=== PATIENT | male | born 1955 | race Caucasian/White ===

== ENCOUNTER 2021-03-22 11:31 | Inpatient (IN) | payer MEDICAID ==
[~2021-03-22] VITALS: Ht 185.4 cm; Wt 140.0 kg
[~2021-03-22 11:31] MED LIST: LITH450T PO
--- NOTE | 2021-03-22 11:42 | NUR ---
MATTHEW JACKSON (SISTER) [phone] PER THE PT, HIS SISTER NAMED ABOVE, CAN BE INFORMED OF HIS MEDICAL CARE AND CAN MAKE DECISIONS IF HE IS UNABLE TO DO SO.
--- NOTE | 2021-03-22 11:45 | NUR ---
PT BIB EMS FROM FOR LOW SPO2 AND SOB. PT HAD PENUMONIA IN LATE 2019, NEGATIVE FOR COVID AND HAS BEEN HAVING LUNG ISSUES ON AND OFF SINCE. PT WENT TO TODAY FOR SOB. PER EMS TOLD THEM THAT PT O2 SPO2 ON ROOM AIR WAS 82%. EMS PLACED PT ON 6 LPM AND PT WENT UP TO 96%. PIV INTIATED BY EMS AND 4 MG ZOFRAN GIVEN. PT HOOKED TO [place]. VS ASSESSED. RAILS UP AND CALL LIGHT WITHIN REACH. SISTER BEDSIDE WITH PT.
[2021-03-22] MEDS ORDERED: SODIUM CHLORIDE 0.9% 1,000ML IVBOLUS ONE ×2 (12:30→15:00)
[2021-03-22] MEDS ORDERED: SODIUM CHLORIDE FLUSH 10ML SYR IVF ONE (12:30)
[2021-03-22] MEDS ORDERED: ONDANSETRON 2MG/ML, 2ML IVPush ONE (12:30)
[2021-03-22] MEDS ORDERED: ONDANSETRON 2MG/ML, 2ML ONE (12:43)
[2021-03-22] MEDS ORDERED: DEXAMETHASONE 4 MG/ML, 1ML ONE (12:56)
[2021-03-22] MEDS ORDERED: CEFTRIAXONE 1,000 MG in DEXTROSE 5% 50 ML IVPB ONE (13:00)
[2021-03-22] MEDS ORDERED: DEXAMETHASONE 4 MG/ML, 1ML IVPush ONE (13:00)
[2021-03-22 13:25] LABS: MEAN CORPUSCULAR HEMOGLOBIN 31.9 pg (27.5-34.5); MEAN CORPUSCULAR HGB CONC 34.2 g/dL (33.2-36.2); MEAN PLATELET VOLUME 9.4 fL (7.4-10.4); PLATELET COUNT 94 x10^3/uL (130-400); RED BLOOD COUNT 4.88 x10^6/uL (4.38-5.82); RED CELL DISTRIBUTION WIDTH 14.5 % (9.4-14.8)
[2021-03-22 13:37] LABS: ALANINE AMINOTRANSFERASE 63 U/L (12-78); ALBUMIN 2.7 g/dL (3.4-5.0); ANION GAP 6 mmol/L (5-15); CALCIUM 7.9 mg/dL (8.5-10.1); CHLORIDE 95 mmol/L (98-107)
[2021-03-22 13:41] LABS: ALKALINE PHOSPHATASE 52 U/L (45-117); BILIRUBIN,TOTAL 0.5 mg/dL (0.2-1.0); TOTAL PROTEIN 7.1 g/dL (6.4-8.2); TROPONIN I < 0.015 ng/mL (0.000-0.045)
[2021-03-22 14:05] LABS: <PLATELET ESTIMATE> DECREASED; <PLT MORPHOLOGY> NORMAL PLT MORPH; <RBC MORPHOLOGY> NORMAL; BAND#(MANUAL) 0.19 x10^3/uL; BANDS%(MANUAL) 5 % (0-7); LYMPH#(MANUAL) 1.18 x10^3/uL (1-3.4); LYMPHS% (MANUAL) 32 % (22-44); MONOS#(MANUAL) 0.26 x10^3/uL (0.3-2.7); MONOS% (MANUAL) 7 % (2-9); REACTIVE LYMPHS # (MANUAL) 0.04 x10^3/uL (0-0); REACTIVE LYMPHS % (MANUAL) 1 % (0-0); SEG#(MANUAL) 2.04 x10^3/uL (1.8-6.8); SEGS% (MANUAL) 55 % (42-75)
--- NOTE | 2021-03-22 14:10 | NUR ---
ASSUMED CARE OF PATIENT. REPORT GIVEN FROM DAVID SEE
--- NOTE | 2021-03-22 14:19 | NUR ---
DR ARCOS IN ROOM UPDATING PATIENT
--- NOTE | 2021-03-22 15:06 | NUR ---
PT RESTING IN ROOM. VS STABLE. STRATEGIC PLANNING CONSULTANT ON. PULSE OX ON. NSR NOTED. CALL LIGHT IN PLACE. WILL COTINUE TO MONITOR.
--- NOTE | 2021-03-22 17:46 | NUR ---
ALEJANDRA SENT. HOSPITALIST CALLED. PT NOW TO [facility]
[2021-03-22 18:07] LABS: MICROSCOPIC INDICATED
--- NOTE | 2021-03-22 18:16 | NUR ---
PT MOVED TO A HOSPITAL BED. VS STABLE. CALL LIGHT IN PLACE. WILL CONTINUE TO MONITOR.
--- NOTE | 2021-03-22 18:24 | NUR ---
CALLED RADIOLOGY PT CAN'T HAVE A VQ SCAN UNTIL HIS COVID IS BACK.
--- NOTE | 2021-03-22 18:25 | NUR ---
HOSPITALIST IN ROOM
[2021-03-22] MEDS ORDERED: HYDROcodone/APAP 5/325 TABLET PO PRN (19:00)
[2021-03-22] MEDS ORDERED: POLYETHYLENE GLYCOL 17 GM PACKET PO PRN (19:00)
[2021-03-22] MEDS ORDERED: GUAIFENESIN/COD200MG-20MG/10ML LIQUID PO PRN ×2 (19:00)
[2021-03-22] MEDS ORDERED: ONDANSETRON ODT 4 MG PO PRN (19:00)
[2021-03-22] MEDS ORDERED: ACETAMINOPHEN 325 MG TABLET PO PRN (19:00)
[2021-03-22] MEDS ORDERED: BISACODYL 10 MG SUPP PR PRN (19:00)
[2021-03-22] MEDS ORDERED: ONDANSETRON 2MG/ML, 2ML IVPush PRN (19:00)
[2021-03-22] MEDS ORDERED: DOCUSATE 100 MG CAPSULE PO PRN (19:00)
[2021-03-22] MEDS: MELATONIN 5 MG TABLET PO SCH (21:00)
[2021-03-22 21:17] VITALS: BP_SYST 100; BP_SYST 88; BP_DIAS 56; BP_DIAS 65
[2021-03-22] MEDS: ENOXAPARIN 60 MG/0.6 ML SQ SCH (21:40)
[2021-03-22] MEDS: DEXAMETHASONE 4 MG/ML, 1ML IVPush SCH (21:41)
[2021-03-22] MEDS: THIAMINE 100MG TABLET PO SCH (21:41)
[2021-03-22] MEDS: DOXYCYCLINE 100MG TABLET PO SCH (21:41)
[2021-03-22] MEDS: SODIUM CHLORIDE 0.9% 1,000 ML IV SCH (21:42)
[2021-03-23] MEDS: CEFTRIAXONE 2 GM in DEXTROSE 5% 50 ML IVPB SCH (01:02)
[2021-03-23 01:08] VITALS: BP_SYST 100; BP_SYST 105; BP_SYST 95; BP_DIAS 57; BP_DIAS 61; BP_DIAS 68
[2021-03-23] MEDS: SODIUM CHLORIDE 0.9% 1,000 ML IV SCH ×2 (05:00→14:29)
[2021-03-23 07:34] LABS: BASOPHILS % (AUTO) 0 % (0-1); EOSINOPHILS % (AUTO) 0 % (1-7); LYMPHOCYTES % (AUTO) 42 % (22-44); MEAN CORPUSCULAR HEMOGLOBIN 31.4 pg (27.5-34.5); MEAN CORPUSCULAR HGB CONC 33.6 g/dL (33.2-36.2); MEAN PLATELET VOLUME 8.8 fL (7.4-10.4); MONOCYTES % (AUTO) 9 % (2-9); NEUTROPHILS % (AUTO) 49 % (42-75); RED BLOOD COUNT 4.57 x10^6/uL (4.38-5.82); RED CELL DISTRIBUTION WIDTH 14.2 % (9.4-14.8)
[2021-03-23 07:36] VITALS: BP 97/64
[2021-03-23 07:36] LABS: ALBUMIN 2.6 g/dL (3.4-5.0); ANION GAP 7 mmol/L (5-15); CALCIUM 7.7 mg/dL (8.5-10.1); CHLORIDE 102 mmol/L (98-107)
[2021-03-23 07:39] LABS: D-DIMER 1.04 ug/mlFEU (0.00-0.52); D-DIMER (DIC) 1.04 ug/mlFEU (0.00-0.52); PROTIME 11.4 Seconds (9.6-11.5)
[2021-03-23 07:43] LABS: ALANINE AMINOTRANSFERASE 53 U/L (12-78); ALKALINE PHOSPHATASE 49 U/L (45-117); BILIRUBIN,TOTAL 0.3 mg/dL (0.2-1.0); CREATININE 1.32 mg/dL (0.7-1.3); TOTAL PROTEIN 6.7 g/dL (6.4-8.2)
[2021-03-23 07:50] LABS: PLATELET COUNT 110 x10^3/uL (130-400)
[2021-03-23] MEDS: CHOLECALCIFEROL 1,000 UNIT TABLET PO SCH (09:00)
[2021-03-23] MEDS: THIAMINE 100MG TABLET PO SCH ×2 (10:05→20:51)
[2021-03-23] MEDS: ZINC SULFATE 220 MG CAPSULE PO SCH (10:05)
[2021-03-23] MEDS: DOXYCYCLINE 100MG TABLET PO SCH ×2 (10:06→20:50)
[2021-03-23] MEDS: ENOXAPARIN 60 MG/0.6 ML SQ SCH ×2 (10:06→20:50)
[2021-03-23] MEDS: ASCORBIC ACID 500 MG TABLET PO SCH ×2 (10:13→17:45)
[2021-03-23 13:37] VITALS: BP 114/75
[2021-03-23] MEDS ORDERED: OMNIPAQUE 350 MG/ML, 100ML BOTTLE ONE (16:33)
[2021-03-23] MEDS: DEXAMETHASONE 4 MG/ML, 1ML IVPush SCH (17:45)
[2021-03-23] MEDS ORDERED: REMDESIVIR 200 MG in SODIUM CHLORIDE 0.9% 250 ML IVPB ONE (18:00)
[2021-03-23 20:44] VITALS: BP 96/60
[2021-03-23] MEDS: MELATONIN 5 MG TABLET PO SCH (20:51)
[2021-03-24] MEDS: CEFTRIAXONE 2 GM in DEXTROSE 5% 50 ML IVPB SCH (01:04)
[2021-03-24 01:05] VITALS: BP 98/63
[2021-03-24] MEDS: SODIUM CHLORIDE 0.9% 1,000 ML IV SCH ×2 (03:41→13:24)
[2021-03-24 05:54] LABS: BASOPHILS % (AUTO) 0 % (0-1); EOSINOPHILS % (AUTO) 0 % (1-7); INTERNATIONAL NORMALIZED RATIO 0.99 (0.93-1.1); LYMPHOCYTES % (AUTO) 14 % (22-44); MEAN CORPUSCULAR HEMOGLOBIN 30.9 pg (27.5-34.5); MEAN CORPUSCULAR HGB CONC 33.3 g/dL (33.2-36.2); MEAN PLATELET VOLUME 8.9 fL (7.4-10.4); MONOCYTES % (AUTO) 6 % (2-9); NEUTROPHILS % (AUTO) 80 % (42-75); PLATELET COUNT 139 x10^3/uL (130-400); PROTHROMBIN TIME 10.6 Seconds (9.6-11.5); RED BLOOD COUNT 4.57 x10^6/uL (4.38-5.82); RED CELL DISTRIBUTION WIDTH 14.2 % (9.4-14.8)
[2021-03-24 05:55] LABS: ALANINE AMINOTRANSFERASE 51 U/L (12-78); ALBUMIN 2.6 g/dL (3.4-5.0); ANION GAP 3 mmol/L (5-15); CALCIUM 7.9 mg/dL (8.5-10.1); CHLORIDE 107 mmol/L (98-107); CREATININE 1.19 mg/dL (0.7-1.3)
[2021-03-24 05:57] LABS: ALKALINE PHOSPHATASE 47 U/L (45-117); BILIRUBIN,TOTAL 0.3 mg/dL (0.2-1.0)
[2021-03-24] MEDS: ASCORBIC ACID 500 MG TABLET PO SCH ×2 (07:41→18:17)
[2021-03-24] MEDS: THIAMINE 100MG TABLET PO SCH ×2 (07:41→21:26)
[2021-03-24] MEDS: ZINC SULFATE 220 MG CAPSULE PO SCH (07:41)
[2021-03-24] MEDS: DOXYCYCLINE 100MG TABLET PO SCH ×2 (07:41→21:26)
[2021-03-24] MEDS: CHOLECALCIFEROL 1,000 UNIT TABLET PO SCH (07:42)
[2021-03-24 07:58] VITALS: BP 119/79
[2021-03-24] MEDS: ENOXAPARIN 60 MG/0.6 ML SQ SCH ×2 (10:47→21:31)
[2021-03-24 12:25] VITALS: BP 127/78
[2021-03-24] MEDS: REMDESIVIR 100 MG in SODIUM CHLORIDE 0.9% 250 ML IVPB SCH (18:17)
[2021-03-24] MEDS: DEXAMETHASONE 4 MG/ML, 1ML IVPush SCH (18:17)
[2021-03-24 19:27] VITALS: BP 121/75
[2021-03-24] MEDS: GUAIFENESIN/COD200MG-20MG/10ML LIQUID PO SCH (21:26)
[2021-03-24] MEDS: MELATONIN 5 MG TABLET PO SCH (21:26)
[2021-03-24] MEDS ORDERED: DIPHENHYDRAMINE 25 MG CAPSULE PO PRN (22:00)
[2021-03-25] MEDS: CEFTRIAXONE 2 GM in DEXTROSE 5% 50 ML IVPB SCH (01:01)
[2021-03-25 01:45] VITALS: BP 129/79
[2021-03-25] MEDS: GUAIFENESIN/COD200MG-20MG/10ML LIQUID PO SCH ×4 (06:23→21:09)
[2021-03-25 06:56] LABS: ALBUMIN 2.7 g/dL (3.4-5.0); ANION GAP 6 mmol/L (5-15); CALCIUM 7.9 mg/dL (8.5-10.1); CHLORIDE 107 mmol/L (98-107)
[2021-03-25 07:01] LABS: ALANINE AMINOTRANSFERASE 46 U/L (12-78); ALKALINE PHOSPHATASE 51 U/L (45-117); BILIRUBIN,TOTAL 0.3 mg/dL (0.2-1.0); CREATININE 0.97 mg/dL (0.7-1.3); TOTAL PROTEIN 6.6 g/dL (6.4-8.2)
[2021-03-25 08:10] VITALS: BP 113/73
[2021-03-25] MEDS: ENOXAPARIN 60 MG/0.6 ML SQ SCH ×2 (09:39→21:08)
[2021-03-25] MEDS: ZINC SULFATE 220 MG CAPSULE PO SCH (09:39)
[2021-03-25] MEDS: ASCORBIC ACID 500 MG TABLET PO SCH ×2 (09:39→18:02)
[2021-03-25] MEDS: CHOLECALCIFEROL 1,000 UNIT TABLET PO SCH (09:39)
[2021-03-25] MEDS: THIAMINE 100MG TABLET PO SCH ×2 (09:39→21:09)
[2021-03-25] MEDS: DOXYCYCLINE 100MG TABLET PO SCH ×2 (09:40→21:09)
[2021-03-25 13:58] VITALS: BP 121/78
[2021-03-25] MEDS: DEXAMETHASONE 4 MG/ML, 1ML IVPush SCH (18:03)
[2021-03-25] MEDS: REMDESIVIR 100 MG in SODIUM CHLORIDE 0.9% 250 ML IVPB SCH (18:03)
[2021-03-25 20:00] VITALS: BP 125/77
[2021-03-25] MEDS: MELATONIN 5 MG TABLET PO SCH (21:09)
[2021-03-26] MEDS: CEFTRIAXONE 2 GM in DEXTROSE 5% 50 ML IVPB SCH (00:55)
[2021-03-26 02:28] VITALS: BP 104/65
[2021-03-26] MEDS: GUAIFENESIN/COD200MG-20MG/10ML LIQUID PO SCH ×4 (06:21→20:58)
[2021-03-26] MEDS: ASCORBIC ACID 500 MG TABLET PO SCH ×2 (07:37→16:57)
[2021-03-26] MEDS: DOXYCYCLINE 100MG TABLET PO SCH ×2 (07:37→20:58)
[2021-03-26] MEDS: CHOLECALCIFEROL 1,000 UNIT TABLET PO SCH (07:37)
[2021-03-26] MEDS: ZINC SULFATE 220 MG CAPSULE PO SCH (07:37)
[2021-03-26] MEDS: THIAMINE 100MG TABLET PO SCH ×2 (07:37→20:58)
[2021-03-26] MEDS: ENOXAPARIN 60 MG/0.6 ML SQ SCH ×2 (07:40→20:58)
[2021-03-26 07:42] VITALS: BP 118/69
[2021-03-26 11:23] LABS: CHLORIDE 103 mmol/L (98-107)
[2021-03-26 11:29] LABS: ALANINE AMINOTRANSFERASE 45 U/L (12-78); ALBUMIN 2.6 g/dL (3.4-5.0); ALKALINE PHOSPHATASE 53 U/L (45-117); ANION GAP 8 mmol/L (5-15); BILIRUBIN,TOTAL 0.3 mg/dL (0.2-1.0); CALCIUM 8.3 mg/dL (8.5-10.1); CREATININE 0.98 mg/dL (0.7-1.3); TOTAL PROTEIN 6.6 g/dL (6.4-8.2)
[2021-03-26 13:49] VITALS: BP 113/70
[2021-03-26] MEDS ORDERED: REMDESIVIR 100 MG in SODIUM CHLORIDE 0.9% 250 ML IVPB SCH (18:00)
[2021-03-26 20:11] VITALS: BP 121/74
[2021-03-26] MEDS: DEXAMETHASONE 4 MG/ML, 1ML IVPush SCH (20:58)
[2021-03-26] MEDS: MELATONIN 5 MG TABLET PO SCH (20:58)
[2021-03-27] MEDS ORDERED: AMOX1TAB64 PO (00:58)
[2021-03-27] MEDS ORDERED: CHOL10003 PO (00:58)
[2021-03-27] MEDS ORDERED: MELA5TAB14 PO (00:58)
[2021-03-27] MEDS ORDERED: ZINC220C8 PO (00:58)
[2021-03-27] MEDS ORDERED: ASCO500T9 PO (00:58)
[2021-03-27] MEDS ORDERED: DEXA6TAB6 PO (00:58)
[2021-03-27] MEDS ORDERED: THIA100T67 PO (00:58)
[2021-03-27] MEDS ORDERED: ACET325T26 PO (00:58)
[2021-03-27] MEDS: CEFTRIAXONE 2 GM in DEXTROSE 5% 50 ML IVPB SCH (01:11)
[2021-03-27 01:32] VITALS: BP 110/71
[2021-03-27] MEDS: GUAIFENESIN/COD200MG-20MG/10ML LIQUID PO SCH ×3 (06:24→17:35)
[2021-03-27 07:49] LABS: D-DIMER 0.55 ug/mlFEU (0.00-0.52)
[2021-03-27 07:51] LABS: BASOPHILS % (AUTO) 0 % (0-1); EOSINOPHILS % (AUTO) 0 % (1-7); LYMPHOCYTES % (AUTO) 13 % (22-44); MEAN CORPUSCULAR HEMOGLOBIN 31.4 pg (27.5-34.5); MEAN CORPUSCULAR HGB CONC 33.9 g/dL (33.2-36.2); MEAN PLATELET VOLUME 8.6 fL (7.4-10.4); MONOCYTES % (AUTO) 8 % (2-9); NEUTROPHILS % (AUTO) 80 % (42-75); PLATELET COUNT 235 x10^3/uL (130-400); RED BLOOD COUNT 4.74 x10^6/uL (4.38-5.82); RED CELL DISTRIBUTION WIDTH 14.6 % (9.4-14.8)
[2021-03-27 07:54] LABS: ANION GAP 5 mmol/L (5-15); CALCIUM 8.5 mg/dL (8.5-10.1); CHLORIDE 102 mmol/L (98-107)
[2021-03-27 08:03] LABS: HCT (SEDRATE) 43.9 % (39.2-51.8)
[2021-03-27 08:04] LABS: CREATININE 0.95 mg/dL (0.7-1.3)
[2021-03-27 09:19] VITALS: BP 130/83
[2021-03-27] MEDS: DOXYCYCLINE 100MG TABLET PO SCH (10:01)
[2021-03-27] MEDS: ASCORBIC ACID 500 MG TABLET PO SCH ×2 (10:01→17:35)
[2021-03-27] MEDS: ZINC SULFATE 220 MG CAPSULE PO SCH (10:01)
[2021-03-27] MEDS: ENOXAPARIN 60 MG/0.6 ML SQ SCH (10:02)
[2021-03-27] MEDS: THIAMINE 100MG TABLET PO SCH (10:02)
[2021-03-27] MEDS: CHOLECALCIFEROL 1,000 UNIT TABLET PO SCH (10:02)
[2021-03-27 10:53] LABS: ALBUMIN 2.7 g/dL (3.4-5.0); ANION GAP 5 mmol/L (5-15); CALCIUM 8.7 mg/dL (8.5-10.1); CHLORIDE 101 mmol/L (98-107)
[2021-03-27 10:57] LABS: ALANINE AMINOTRANSFERASE 44 U/L (12-78); ALKALINE PHOSPHATASE 58 U/L (45-117); BILIRUBIN,TOTAL 0.5 mg/dL (0.2-1.0); CREATININE 0.96 mg/dL (0.7-1.3)
[2021-03-27 14:20] VITALS: BP 117/72
[2021-03-27] MEDS ORDERED: REMDESIVIR 100 MG in SODIUM CHLORIDE 0.9% 250 ML IVPB ONE (16:00)
== END 2021-03-27 19:40 | disposition left against medical advice (07) | DRG 177 ==
LOC: ED 12:53 → SUATTDRO 17:51 → EDIP 20:14 → 3N 20:36
PROVIDERS: ADMIT Internal Medicine; ATTEND Internal Medicine
PROC: XW033E5 Introduction of Remdesivir Anti-infective into Peripheral Vein, Percutaneous Approach, New Technology Group 5 (ICD-10-PCS; principal; 2021-03-23)
DX: U07.1 COVID-19 (principal); J12.82 Pneumonia due to coronavirus disease 2019; J96.01 Acute respiratory failure with hypoxia; N17.0 Acute kidney failure with tubular necrosis; E87.1 Hypo-osmolality and hyponatremia; R65.10 Systemic inflammatory response syndrome (SIRS) of non-infectious origin without acute organ dysfunction; E07.9 Disorder of thyroid, unspecified; F32.9 Major depressive disorder, single episode, unspecified; D69.59 Other secondary thrombocytopenia; E86.9 Volume depletion, unspecified; Z87.891 Personal history of nicotine dependence; Z53.29 Procedure and treatment not carried out because of patient's decision for other reasons
CPT/HCPCS: 36415; 71045; 71275; 80048; 80053; 81001; 82728; 83605; 83615; 83735; 83880; 84100; 84145; 84484; 85025; 85049; 85379; 85384; 85610; 85651; 85730; 86140; 87040; 93005; 96361; 96374; 96375; 99291; G0378; J0696; J1100; J1650; J2405; Q9967; U0005; J7030; J7050; Q0163; U0003